=== PATIENT | female | born 1965 | race Caucasian/White ===

== ENCOUNTER 2018-07-19 09:25 | Emergency (ER) | payer OTHER ==
[2018-07-19 10:00] LABS: ABSOLUTE EOSINOPHILS # (AUTO) 0.1 10^3/uL (0.0-0.6); ABSOLUTE LYMPHOCYTES (AUTO) 1.2 10^3/uL (0.5-4.7); ABSOLUTE MONOCYTES (AUTO) 0.4 10^3/uL (0.1-1.4); ABSOLUTE NEUT (AUTO) 4.2 10^3/uL (1.7-8.2); BASOPHILS % (AUTO) 0.6 % (0-2); EOSINOPHILS % (AUTO) 1.2 % (0-6); HEMATOCRIT 36.8 % (36.0-47.0); HEMOGLOBIN 12.3 g/dL (12.0-15.5); LYMPHOCYTES % (AUTO) 20.3 % (13-45); MEAN CORPUSCULAR HEMOGLOBIN 28.2 pg (27.0-33.4); MEAN CORPUSCULAR HGB CONC 33.5 g/dL (32.0-36.0); MEAN CORPUSCULAR VOLUME 84 fl (80-97); MONOCYTES % (AUTO) 6.4 % (3-13); PLATELET COUNT 214 10^3/uL (150-450); RED BLOOD COUNT 4.36 10^6/uL (3.72-5.28); RED CELL DISTRIBUTION WIDTH 15.8 % (11.5-14.0); SEGMENTED NEUTROPHILS % (AUTO) 71.5 % (42-78); TOTAL CELLS COUNTED % (AUTO) 100 %; WHITE BLOOD COUNT 5.9 10^3/uL (4.0-10.5)
--- NOTE | 2018-07-19 10:08 | ER Document Report ---
ED Syncope and Near Syncope - General Chief Complaint: Seizure Stated Complaint: POSSIBLE SEIZURE Time Seen by Provider: 07/19/18 09:56 Mode of Arrival: Stretcher Information source: Patient, Relative - HPI Patient complains to provider of: Fainting Episode witnessed (by whom): Yes Multiple episodes (how many): 4 When did episodes begin: 720am When was most recent episode: in ED Symptoms prior to episode: Dizziness, Lightheaded Quality of pain: No pain Context: Became unresponsive, Collapsed Duration of LOC (min): 10 seconds Injury location: None Current symptoms: None/feels back to normal Similar symptoms previously: No Recently seen / treated by doctor: No Notes: Patient is a 53-year-old female brought to the emergency room by EMS for possible syncope versus seizure activity that started this morning, patient reports the first episode occurred around 720 this morning, she otherwise had a very normal morning, she was at work when the most recent one occurred, however EMS reports they noted an episode and patient has had now 2 episodes while in the emergency department, the last approximately 5-10 seconds, she does report feeling one coming on as she feels very lightheaded and dizzy, nursing staff who witnessed the most recent episode reports that it appeared to be seizure related activity, patient has no history of seizures, she otherwise denies any recent illness or injury, no recent traveling, denies any change in medications, no aggravating or alleviating factors to these episodes, they are not brought about by change in position, she denies any recent head injury, no fevers, no nausea, vomiting or diarrhea, no vision changes, 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 when the episode just prior to arrival occurred, patient denies any injuries from any of these episodes as well - Related Data Allergies/Adverse Reactions: levofloxacin [From Levaquin] Allergy (Verified 07/19/18 09:37) Past Medical History - General Information source: Patient - Social History Smoking Status: Unknown if Ever Smoked Family History: Reviewed & Not Pertinent Review of Systems - Review of Systems Constitutional: No symptoms reported EENT: No symptoms reported Cardiovascular: See HPI Respiratory: No symptoms reported Gastrointestinal: No symptoms reported Genitourinary: No symptoms reported Female Genitourinary: No symptoms reported Musculoskeletal: No symptoms reported Skin: No symptoms reported Hematologic/Lymphatic: No symptoms reported Neurological/Psychological: No symptoms reported -: Yes All other systems reviewed and negative Physical Exam - Vital signs Vitals: Resp 16 07/19/18 09:45 Interpretation: Normal - General General appearance: Appears well, Alert - HEENT Head: Normocephalic, Atraumatic Eyes: Normal Pupils: PERRL - Respiratory Respiratory status: No respiratory distress Chest status: Nontender Breath sounds: Normal Chest palpation: Normal - Cardiovascular Rhythm: Regular Heart sounds: Normal auscultation Murmur: No - Abdominal Inspection: Normal Distension: No distension Bowel sounds: Normal Tenderness: Nontender Organomegaly: No organomegaly - Back Back: Normal, Nontender - Extremities General upper extremity: Normal inspection, Nontender, Normal color, Normal ROM, Normal temperature General lower extremity: Normal inspection, Nontender, Normal color, Normal ROM, Normal temperature, Normal weight bearing. No: Sea's sign - Neurological Neuro grossly intact: Yes Cognition: Normal Orientation: AAOx4 Kirsten Coma Scale Eye Opening: Spontaneous Kirsten Coma Scale Verbal: Oriented Kirsten Coma Scale Motor: Obeys Commands Kirsten Coma Scale Total: 15 Speech: Normal Motor strength normal: LUE, RUE, LLE, RLE Sensory: Normal - Psychological Associated symptoms: Normal affect, Normal mood - Skin Skin Temperature: Warm Skin Moisture: Dry Skin Color: Normal Course - Re-evaluation Re-evalutation: 07/19/18 10:21 I was called to the room to evaluate patient as she appeared to be having a syncopal versus seizure episode, as I entered the room the nurse reports that the episode just stopped, patient is alert, she is flushed and slightly diaphoretic, but she is alert and oriented, she does not appear postictal, as I did not witness the episode I cannot confirm whether there was actual seizure activity, the nurse reports that patient's upper extremities were shaking slightly during the episode and that the episode lasted approximately 7 seconds, just prior to the episode on the museum exhibit technician strip that was printed by nursing staff patient becomes profoundly bradycardic at a rate of approximately 28, I have requested patient be moved to a closer room and be placed back on the monitor immediately with pacer pads and the code cart in the room, I also placed a call to [facility], spoke with Ana Rosa in the transfer center and requested transfer of this patient for further evaluation and treatment by cardiology 07/19/18 10:31 Called back into room as patient was reporting that she felt like she was about to have another episode, when I entered the room she did appear to have a glazed over look on her face, there was no seizure activity noted, her heart rate was 22 on the monitor in the room and appeared to be sinus otherwise, the episode again lasted approximately 5 seconds, at which point in time she was slightly flushed and diaphoretic, however once the episode ceased patient was awake and alert with no postictal phase, I did place a call to on-call cardiology, discussed patient with Dr. Costa who recommended urgent transfer to [facility] for possible pacemaker placement, in the meantime starting patient on a low-dose dopamine drip at 3 mcg/kg 07/19/18 11:01 Patient discussed with media theorist and author of Dr. Betts at [facility], who accepts patient for transfer, however advised discussing patient with the [employer] solutions sales consultant Dr. Wellington for formal acceptance and bed placement, Dr. mariscal graciously accepts patient for transfer, Dr. Betts recommends increasing dopamine drip to 5 mcg/kg, transfer center to do a whether check for possible air transport if available Shortly after discussing patient with [facility] nursing staff reports she had another syncopal episode, this time they were unable to palpate pulses, this lasted slightly longer 15-20 seconds, when I entered the room patient appeared to be once again coming around and waking up, I did know her heart rate to be 22 on the monitor as I entered the room, nursing staff was advised to have 0.5 mg of atropine on hand in case another episode were to occur - Vital Signs Vital signs: Temp Pulse Resp BP Pulse Ox 97.4 F 18 142/85 H 100 07/19/18 09:59 07/19/18 10:02 07/19/18 10:02 07/19/18 10:02 - Laboratory Result Diagrams: 07/19/18 09:50 07/19/18 09:50 Laboratory results interpreted by me: 07/19/18 07/19/18 07/19/18 09:50 09:50 09:50 RDW 15.8 H BUN 21 H Est GFR (Non-Af Amer) 58 L Glucose 115 H POC Glucose TSH 5.93 H 07/19/18 09:58 RDW BUN Est GFR (Non-Af Amer) Glucose POC Glucose 111 H TSH - Diagnostic Test Radiology reviewed: Image reviewed, Reports reviewed - EKG Interpretation by Me EKG shows normal: Sinus rhythm Rate: Normal Rhythm: NSR Critical Care Note - Critical Care Note Total time excluding time spent on procedures (mins): 90 Comments: Patient with frequent episodes of bradycardia causing syncopal episodes, requiring very close monitoring, multiple re-evaluations and emergent transfer to tertiary care center Discharge - Discharge Clinical Impression: Syncope, Bradycardia Condition: Serious Disposition: [facility]
[2018-07-19 10:20] LABS: ALANINE AMINOTRANSFERASE 48 U/L (9-52); ALBUMIN 4.5 g/dL (3.5-5.0); ALCOHOL < 10 mg/dL (NONE DETECTED); ALKALINE PHOSPHATASE 76 U/L (38-126); ANION GAP 9 (5-19); ASPARTATE AMINO TRANSFERASE 32 U/L (14-36); BILIRUBIN,DIRECT 0.1 mg/dL (0.0-0.4); BILIRUBIN,TOTAL 0.6 mg/dL (0.2-1.3); BLOOD UREA NITROGEN 21 mg/dL (7-20); CALCIUM 9.5 mg/dL (8.4-10.2); CARBON DIOXIDE 26 mmol/L (22-30); CHLORIDE 104 mmol/L (98-107); GLUCOSE 115 mg/dL (75-110); POTASSIUM 4.1 mmol/L (3.6-5.0); SODIUM 138.6 mmol/L (137-145); TOTAL PROTEIN 7.1 g/dL (6.3-8.2)
[2018-07-19] MEDS ORDERED: DOPAMINE HCL/DEXTROSE 5%-WATER 800 MG/250 ML RTUINJ IV PRN (10:31)
[2018-07-19 10:32] LABS: CREATINE KINASE MB 0.72 ng/mL (<4.55)
[2018-07-19 10:39] LABS: FREE T3 3.37 pg/mL (2.77-5.27); FREE T4 (FREE THYROXINE) 1.26 ng/dL (0.78-2.19)
[2018-07-19 10:40] LABS: TROPONIN I < 0.012 ng/mL
[2018-07-19 10:53] LABS: THYROID STIMULATING HORMONE 5.93 uIU/mL (0.47-4.68)
[2018-07-19] MEDS ORDERED: ATROPINE SULFATE INJ 1 MG/1 ML VIAL ONE (11:03)
[2018-07-19] MEDS ORDERED: METOCLOPRAMIDE HCL INJ/PF 10 MG/2 ML SDV IV ONE (11:31)
[2018-07-19] MEDS ORDERED: METOCLOPRAMIDE HCL INJ/PF 10 MG/2 ML SDV ONE (11:32)
--- NOTE | 2018-07-19 11:34 | RADIOLOGY REPORT (SQ) ---
EXAM DESCRIPTION: CHEST SINGLE VIEW COMPLETED DATE/TIME: 07/19/2018 11:23 am REASON FOR STUDY: syncope, isaiah COMPARISON: None. EXAM PARAMETERS: NUMBER OF VIEWS: One view. TECHNIQUE: Single frontal radiographic view of the chest acquired. RADIATION DOSE: NA LIMITATIONS: None. FINDINGS: LUNGS AND PLEURA: Calcified granuloma left lung. No pleural effusion. MEDIASTINUM AND HILAR STRUCTURES: No masses. Contour normal. HEART AND VASCULAR STRUCTURES: Heart normal in size. Normal vasculature. BONES: No acute findings. HARDWARE: None in the chest. OTHER: No other significant finding. IMPRESSION: NO ACUTE RADIOGRAPHIC FINDING IN THE CHEST. TECHNICAL DOCUMENTATION: JOB ID: [email or web address] All Rights Reserved Reading location - IP/workstation name: [email or web address]
[2018-07-19 11:46] VITALS: BP 121/47
--- NOTE | 2018-07-19 13:23 | EKG REPORT ---
SEVERITY:- NORMAL ECG - SINUS RHYTHM : Confirmed by: Ramesh Pappas MD 19-Jul-2018 13:22:12
== END 2018-07-19 11:40 | disposition short-term general hospital (02) ==
LOC: EDBD → ER 09:25
DX: R00.1 Bradycardia, unspecified (principal); R55 Syncope and collapse; R61 Generalized hyperhidrosis; R23.2 Flushing; Z88.1 Allergy status to other antibiotic agents
CPT/HCPCS: 93005; 99291; 99292; 96375; 96365; 36415; 84439; 82553; 82962; 80307; 82550; 83735; 84443; 85025; 80053; 84484; 84481; 71045; 93010; J1265; J2765